=== PATIENT | female | born 1980 | race Caucasian/White ===

== ENCOUNTER 2016-08-07 10:02 | Emergency (ER) | payer OTHER | END 2016-08-07 14:22 | disposition home or self-care (01) | LOC: ER 10:02 | DX: S16.1XXA Strain of muscle, fascia and tendon at neck level, initial encounter (principal); Z90.710 Acquired absence of both cervix and uterus; V89.2XXA Person injured in unspecified motor-vehicle accident, traffic, initial encounter | CPT/HCPCS: 70450; 71010; 72125; 73030-LT; 99284; A9270-GY ==